=== PATIENT | male | born 1970 | race Caucasian/White ===

== ENCOUNTER 2024-07-20 05:55 | Day surgery (SDC) | payer BC, SELFPAY ==
[2024-07-19 11:16] VITALS: BMI 33.8
[2024-07-19 11:34] LABS: % Basophils 0.4 % (0-2); % Eosinophils 1.2 % (0-6); % Immature Granulocytes 0.7 % (0-0.5); % Lymphocytes 14.9 % (20.5-51.1); % Neutrophils 70.8 % (42.2-75.2); Absolute Eosinophils 0.1 10^3/uL (0-0.7); Absolute Immature Granulocytes 0.1 10^3/uL (0-0.05); Absolute Lymphocytes 1.2 10^3/uL (1.2-3.4); Absolute Neutrophils 5.8 10^3/uL (1.4-6.5); Hematocrit 42.2 % (39.0-52.0); Hemoglobin 14.3 g/dL (13.0-18.0); Mean Corp Hgb Conc. 33.9 g/dL (33.0-37.0); Mean Corpuscular Hgb 28.3 pg (27.0-31.0); Mean Corpuscular Volume 83.6 fL (80.0-94.0); Nucleated Red Blood Cells % 0 % (-); Platelet Count 180 10^3/uL (130-400); Red Blood Cell Count 5.05 10^6/uL (4.70-6.10); Red Cell Dist. Width 13.2 % (11.5-14.5); White Blood Cell Count 8.1 10^3/uL (4.8-10.8)
[2024-07-19 11:49] LABS: ALT (SGPT) 21 U/L (0-50); AST (SGOT) 21 U/L (17-59); Albumin 4.4 g/dl (3.5-5.0); Alkaline Phosphatase 89 U/L (38-126); Blood Urea Nitrogen 25 mg/dl (9-20); Calcium 9.4 mg/dl (8.4-10.2); Carbon Dioxide 27 mmol/L (22-30); Chloride 103 mmol/L (98-107); Estimated Creatinine Clearance 103 ml/min; Glucose 101 mg/dl (70-99); Magnesium 2.1 mg/dl (1.6-2.3); Potassium 4.4 mmol/L (3.5-5.1); Sodium 141 mmol/L (135-145); Total Bilirubin 0.5 mg/dl (0.2-1.3); Total Protein 7.2 g/dl (6.3-8.2); eGFR > 60.00
[2024-07-19 12:10] LABS: INR 1.07
--- NOTE | 2024-07-19 12:11 | HPS.HSE ---
Family Physician
-
Family Physician: NOT KNOW UNKNOWN - PT DOES
Chief Complaint
-
Paroxysmal AFib/flutter
History of Present Illness
54 year-old male with paroxysmal symptomatic atrial fibrillation who is undergone two prior cardioversion but has failed to maintain long-term sinus rhythm. His arrhythmia dates back to 2019 at which time he was experiencing palpitations,
intermittent shortness of breath, fatigue, and dizziness. He was placed on Sotalol but states he developed heart block and this was subsequently discontinued. He is presently maintained on Diltiazem and anticoagulated on Eliquis. When seen in follow
up, he was noted to be in atrial fibrillation/aflutter. Past medical le history also includes low-grade pancreatitis and obesity. Echocardiogram during last hospitalization February 2023 showed normal left ventricular size and systolic function with
LVEF 45 to 50% range. We will perform EP study with ablation to hopefully eradicate his arrhythmia.
Medical History
Past Medical History
Past Medical History: Reports Arrhythmia (AFib/flutter) and Other (pancreatitis, obesity BMI 33.8)
Past Surgical History: Reports Cardiac (CV x2 2019)
Social History
Tobacco: Non-smoker
Alcohol: Other (previously 1 drink/day, now none)
Family History
Family History: Not pertinent
Allergies / Home Medications
Allergy/Medication List:
Allergies:
NKDA
Home Medications:
Eliquis 5mh bid.
diltiazem 120mg hs.
Review of Systems
-
A 12 point ROS was completed and negative except as noted: Yes
Physical Exam
Physical Exam
General: Well Developed and Well Nourished
HEENT: NormoCephalic and Anicteric
Respiratory: Clear and Non Labored Respirations
Cardiac: Irregular Rhythm
GI: Soft and Non Tender
Musculoskeletal: No Edema
Neuro: AO x 3 and Cranial Nerves Intact
Laboratory Results
-
07/19/24 11:24
07/19/24 11:24
Laboratory Results
Total Bilirubin 0.5 mg/dl (0.2-1.3) 07/19/24 11:24
AST 21 U/L (17-59) 07/19/24 11:24
ALT 21 U/L (0-50) 07/19/24 11:24
Alkaline Phosphatase 89 U/L (38-126) 07/19/24 11:24
Impression/Plan
-
IMPRESSION/PLAN:
PAF/Flutter-EP study with ablation.
[2024-07-20] VITALS (20 sets, daily range): BP systolic 104–145; BP diastolic 74–97; BMI 33.7
[2024-07-20 08:58] LABS: ACT-LR - POC 335 Seconds (116-155)
[2024-07-20 09:18] LABS: ACT-LR - POC 308 Seconds (116-155)
[2024-07-20 09:39] LABS: ACT-LR - POC 322 Seconds (116-155)
--- NOTE | 2024-07-20 09:51 | ITS.CL.ABL ---
Informatics Educator - Ablation
Ablation
Procedure Report:
ELECTROPHYSIOLOGY ABLATION STUDY
�
DATE:: July 20, 2024�����������������������������REFERRING: Dr. Shun Harris
�
INDICATION: Persistent supraventricular tachycardia in the form of atrial fibrillation.� Depressed ejection fraction related to rapid atrial fibrillation rates
�
HISTORY: See H and P.��As above
�
ANTIARRHYTHMIC DRUG: Diltiazem
�
PRE-PROCEDURE CHIKI: No atrial thrombus on intracardiac ultrasound
�
PRESENTING RHYTHM: Atrial fibrillation
�
'TIME-OUT':��called and confirmed.
�
SEDATION/ANESTHESIA:��provided via the anesthesia department using general anesthesia (LMA).
�
INTRAVENOUS/ARTERIAL ACCESS:
Right femoral venous - 8Fr we upgraded to a 16 [place] short sheath to accommodate the steerable transseptal sheath
Left femoral venous - 8 Fr, 6 Fr
[id number] suture to bilateral groins
Ultrasound guidance for bilateral femoral vein access was utilized by me to obtain access with demonstration of normal anatomy
CHADS-VASC Score:
�
HAS-Bled Score
�
PROCEDURE:
1.��A decapolar CS catheter was placed within the CS for mapping and pacing.��This was also used as the reference catheter for the 3-D map.
�
2. The intracardiac ultrasound catheter was positioned in the RA to identify the FO for targeting of transseptal puncture, assist��in identification of the pulmonary vein ostia, monitoring pre and post ablation pulmonary vein flow velocities,
monitoring for 'bubble' formation during RF application as a sign of thermal injury,��and to monitor for pericardial effusion during mapping and ablation procedure.���Left atrial size, LV ejection fraction, and pulmonary vein flows were monitored
pre and post ablation procedure. The other valves were inspected and found to be free of significant regurgitation or stenosis.
�
3.��Half of the calculated heparin bolus was administered prior to the first transeptal puncture.��Transseptal puncture was performed to diagnose RA and LA pressure so that safetey of LA mapping and ablation could be further assessed, and to access
the left atrium and pulmonary veins for mapping and ablation.��This entailed advancing an 10 [place] steerable sheath with dilator into the superior vena cava and withdrawing both (monitoring intracardiac ultrasound, fluoroscopy and tip pressure)
with the tip oriented toward the atrial septum. We utilized a safe septal wire and over a ProTrac wire the 14 [place] Contour sheath was brought to the left atrium. �The fossa ovalis was engaged (indicated by sudden displacement of the sheath tip as
well as tenting of the fossa seen on intracardiac ultrasound).��Left atrial access required a pass with the Brockenbrough needle extended.��Left atrial catheter position was confirmed by pressure monitoring (RA mean pressure 8 mm Hg and LA mean
presure 12 mm Hg), LA saturation (99%),��as well as fluoroscopy.��The sheath was advanced over the dilator and positioned in the left atrium.��This procedure was repeated for the Agilis sheath.��The remainder of the calculated heparin bolus was
administered and heparin was
infused to maintain ACT at 300 -350 seconds throughout the case.
�
4.��RA pacing was performed via the proximal decapolar poles and LA pacing was performed via the distal decapolr poles.
�
5. A quadrapolar catheter was first positioned at the His position for His Bundle recording which was tagged via the 3-D Navex sytem, and then passed to the RVA for RV pacing and recording.
�
6. The multipolar catheter and the PFA catheter were placed in each of the LIPV, LSPV, RSPV and the RIPV.��
�
7.��Next, a 3-D map was created using Navex.���A 3-D reconstructed CT image was compared to the 3-D Navex map to assist in anatomic interpretation, mapping and ablation.��The CT image and the NavX image were fused.
�
8. A total of 102 lesions were given to the pulmonary veins and left atrial posterior wall. Electrical silence was established and left atrial posterior wall. In sinus rhythm the veins were remapped and the posterior wall was remapped. The right
pulmonary veins had entrance and exit block and left atrial posterior wall electrical silence. There was a small area of connection distally in the left inferior pulmonary vein on the ligament of Khoa as well as the left superior pulmonary vein
and the anterior olga. Additional lesions were given in both the left superior and left inferior pulmonary veins and these regions and entrance and exit block was confirmed in those pulmonary veins. No other nonpulmonary vein triggers for atrial
fibrillation were notable. Ejection fraction post cardioversion was approximately 40% and preablation in atrial fibrillation approximately 30%.
�
9. Normal sinus node and AV kellie function noted.
�
TOTAL FLOURO TIME: 20.7 minutes
�
TOTAL RF DURATION: 0 minutes
�
REVERSAL OF HEPARIN: 35 mg of protamine, slow IV administration
�
COMPLICATIONS:
None
Intracardiac US shows no pericardial effusion post ablation.
�
SUMMARY:��
Complex left atrial mapping and ablation.
Entrance and exit block in all 4 pulmonary veins and left atrial posterior wall.
�
RECOMMENDATIONS:
1. Out of bed 4 hours
2. Resume anticoagulation
3.��Switch diltiazem to Toprol XL 25 mg given the patient's mild nonischemic cardiomyopathy. Repeat echo in 3 months and consider afterload reduction which could be started as an outpatient
4.��Consider same-day discharge
�
Copy to: Dr. Shun Harris
�
[2024-07-20] MEDS: TOPROL XL 25 MG PO (10:19)
[2024-07-20] MEDS: ANESTHETIC LOZENGE 1 LOZENGE PO (11:59)
--- NOTE | 2024-07-20 13:32 | W.PN.UPDATE ---
Update Note
Progress Note Update
54 yo WM s/p PVI (same day). He denies cp, sob, sharita diet, voiding, b/l groins c/d/i no HT< soft, EKG SR. He will continue OAC Eliquis dose at home tonight. His EF was 40% by ICE intraprocedurally so we will stop Diltiazem and switch to toprol xl
25mg daily. He will need f/u Echo in [address] Harris to reassess EF after maintaining SR. Activity restrictions reviewed. He will f/u Dr. Harris in 3 mo. He is for d/c home after 230p if groins stable.
SUMMARY:��
Complex left atrial mapping and ablation.
Entrance and exit block in all 4 pulmonary veins and left atrial posterior wall.
== END 2024-07-20 14:30 | disposition home or self-care (01) ==
LOC: CATH 05:55
PROVIDERS: ATTENDING PHYSICIAN Internal Medicine Cardiovascular Disease; OTHER PHYSICIAN Internal Medicine Cardiovascular Disease
DX: I48.0 Paroxysmal atrial fibrillation (principal); I48.92 Unspecified atrial flutter; Z87.19 Personal history of other diseases of the digestive system; E66.9 Obesity, unspecified; Z68.33 Body mass index [BMI] 33.0-33.9, adult; Z79.01 Long term (current) use of anticoagulants
CPT/HCPCS: C1732; C1894; C1730; C1769; C1766; C1892; C1759; 36415; 75572; 80053; 83735; 85025; 85347; 85610; 86850; 86900; 86901; 93005; 93656; C1733; C1889; Q9967

== ENCOUNTER 2024-11-17 05:58 | Day surgery (SDC) | payer BC, SELFPAY ==
[2024-11-09 09:57] VITALS: BMI 34.2
[2024-11-09 10:33] LABS: % Basophils 0.4 % (0-2); % Eosinophils 1.2 % (0-6); % Immature Granulocytes 0.4 % (0-0.5); % Monocytes 10.5 % (1.7-9.3); % Neutrophils 77.5 % (42.2-75.2); Absolute Eosinophils 0.1 10^3/uL (0-0.7); Absolute Lymphocytes 0.9 10^3/uL (1.2-3.4); Absolute Monocytes 0.9 10^3/uL (0.1-0.6); Absolute Neutrophils 6.7 10^3/uL (1.4-6.5); Hematocrit 42.7 % (39.0-52.0); Hemoglobin 13.8 g/dL (13.0-18.0); Mean Corp Hgb Conc. 32.3 g/dL (33.0-37.0); Mean Corpuscular Hgb 28.5 pg (27.0-31.0); Mean Corpuscular Volume 88.2 fL (80.0-94.0); Mean Platelet Volume 12.3 fL (7.4-10.4); Nucleated Red Blood Cells % 0 % (-); Platelet Count 150 10^3/uL (130-400); Red Blood Cell Count 4.84 10^6/uL (4.70-6.10); Red Cell Dist. Width 15.4 % (11.5-14.5); White Blood Cell Count 8.6 10^3/uL (4.8-10.8)
[2024-11-09 10:46] LABS: PT 14.7 Sec (11.4-14.6)
[2024-11-09 11:02] LABS: ALT (SGPT) 34 U/L (0-50); AST (SGOT) 27 U/L (17-59); Albumin 4.5 g/dl (3.5-5.0); Alkaline Phosphatase 85 U/L (38-126); Blood Urea Nitrogen 24 mg/dl (9-20); Calcium 9.4 mg/dl (8.4-10.2); Carbon Dioxide 26 mmol/L (22-30); Chloride 102 mmol/L (98-107); Estimated Creatinine Clearance 103 ml/min; Glucose 106 mg/dl (70-99); Magnesium 2.1 mg/dl (1.6-2.3); Potassium 4.4 mmol/L (3.5-5.1); Sodium 138 mmol/L (135-145); Total Bilirubin 0.9 mg/dl (0.2-1.3); Total Protein 7.1 g/dl (6.3-8.2); eGFR > 60.00
[2024-11-17] VITALS (16 sets, daily range): BP systolic 92–145; BP diastolic 65–113
[2024-11-17 08:48] LABS: ACT-LR - POC 372 Seconds (116-155)
[2024-11-17 09:04] LABS: ACT-LR - POC 366 Seconds (116-155)
[2024-11-17 09:21] LABS: ACT-LR - POC 358 Seconds (116-155)
--- NOTE | 2024-11-17 09:46 | ITS.CL.ABL ---
Automobile Body Repair Chief - Ablation
Ablation
Procedure Report:
ELECTROPHYSIOLOGY ABLATION STUDY
DATE:: November 17, 2024�����������������������������REFERRING: Dr. Shun Harris
INDICATION: Persistent supraventricular tachyarrhythmia demonstrated to be atypical atrial flutter. Previous pulmonary vein isolation and left atrial posterior wall isolation with the pulselike catheter in 2023. Preprocedure he had only atrial
fibrillation. Post procedure he has had atypical atrial flutter only but with rapid rates and a tachycardia induced cardiomyopathy. Morphology suggests a left atrial process which is positive throughout the precordium and superiorly directed
potentially mitral or double loop reentry flutter.
HISTORY: See H and P.��As above
ANTIARRHYTHMIC DRUG: Amiodarone
PRE-PROCEDURE CHIKI: No intracardiac thrombus on intracardiac ultrasound
PRESENTING RHYTHM: Atrial flutter which was demonstrated to be clockwise mitral flutter cycle length 220 ms
'TIME-OUT':��called and confirmed.
SEDATION/ANESTHESIA:��provided via the anesthesia department using general anesthesia (LMA).
INTRAVENOUS/ARTERIAL ACCESS:
Right femoral venous - 8Fr
Left femoral venous - 8 Fr, 6 Fr
Ultrasound guidance for bilateral femoral vein access was utilized by me to obtain access with demonstration of normal anatomy
CHADS-VASC Score:
HAS-Bled Score
PROCEDURE:
1.��A decapolar CS catheter was placed within the CS for mapping and pacing.��This was also used as the reference catheter for the 3-D map. We performed entrainment from the right atrium with a decapolar catheter and the Lattice catheter
demonstrating PPI greater than tachycardia cycle length of greater than 100 ms from the lateral CTI, CTI and proximal coronary sinus was 30 ms PPI greater than tachycardia cycle length. We can only engage the proximal ostium with a coronary sinus
catheter. As such we proceeded to transseptal puncture as below and entrainment from the left atrium demonstrated the right and left veins to be out of the circuit with PPI greater than 100 ms greater than tachycardia cycle length and the roof of
the left atrium out of the circuit with a PPI 60 ms greater than tachycardia cycle length. At baseline the right superior pulmonary vein was connected at the olga, the right inferior pulmonary vein was connected at the olga, and the left
inferior pulmonary vein was connected at the anterior olga. The left atrial posterior wall proper was isolated at baseline. Interestingly inside the right supra pulmonary vein cycle length was approximately 150 ms suggesting potentially a
hierarchy of trigger for this atrial flutter.
2. The intracardiac ultrasound catheter was positioned in the RA to identify the FO for targeting of transseptal puncture, assist��in identification of the pulmonary vein ostia, monitoring pre and post ablation pulmonary vein flow velocities,
monitoring for 'bubble' formation during RF application as a sign of thermal injury,��and to monitor for pericardial effusion during mapping and ablation procedure.���Left atrial size, LV ejection fraction, and pulmonary vein flows were monitored
pre and post ablation procedure. The other valves were inspected and found to be free of significant regurgitation or stenosis. At baseline ejection fraction was 30 to 35%. Postconversion ejection fraction was approximately 40%.
3.��Half of the calculated heparin bolus was administered prior to the first transeptal puncture.��Transseptal puncture was performed to diagnose RA and LA pressure so that safety of LA mapping and ablation could be further assessed, and to access
the left atrium and pulmonary veins for mapping and ablation.��This entailed advancing an 10 [place] steerable sheath with dilator into the superior vena cava and withdrawing both (monitoring intracardiac ultrasound, fluoroscopy and tip pressure)
with the tip oriented toward the atrial septum.��The fossa ovalis was engaged (indicated by sudden displacement of the sheath tip as well as tenting of the fossa seen on intracardiac ultrasound).��Left atrial access required a pass with the
Brockenbrough needle extended.��Left atrial catheter position was confirmed by pressure monitoring (RA mean pressure 8 mm Hg and LA mean presure 14 mm Hg), LA saturation (99%),��as well as fluoroscopy.��The sheath was advanced over the dilator and
positioned in the left atrium.��This procedure was repeated for the Agilis sheath.��The remainder of the calculated heparin bolus was administered and heparin was
infused to maintain ACT at 300 -350 seconds throughout the case.
4.��RA pacing was performed via the proximal decapolar poles and LA pacing was performed via the distal decapolr poles.
5. A quadrapolar catheter was first positioned at the His position for His Bundle recording which was tagged via the 3-D Navex sytem, and then passed to the RVA for RV pacing and recording.
6. The ablation catheter was positioned through one of the transeptal seaths and a 20 pole ring mapping catheter was positioned through the second seath into the LA and then the ostia of the LIPV, LSPV, RSPV and the RIPV.��
7.��Next, a 3-D map was created using Navex.���A 3-D reconstructed CT image was compared to the 3-D Navex map to assist in anatomic interpretation, mapping and ablation.��The CT image and the NavX image were fused.
8. Ablation was performed around the right pulmonary veins in a circumferential fashion and around the left pulmonary veins in a circumferential fashion isolating each of the 4 pulmonary veins without change in the underlying cycle length of
tachycardia. Lesions at the roof and the floor of the left atrium were performed to buffet the prior left atrial posterior wall isolation with tachycardia remaining at 230 ms. As above entrainment demonstrated clockwise mitral flutter. We
initiated ablation with radiofrequency energy 400 W over 5 seconds using intracardiac ultrasound's guidance from the mitral annulus. Radiofrequency energy was delivered to the mid annulus with slowing of tachycardia to 250 ms. PFA was then
performed from mid mitral valve isthmus back to the left inferior pulmonary vein with termination of tachycardia and bidirectional block intra isthmus conduction time of 140 ms was noted. There is an absence of voltage along the entirety of the
mitral valve the left inferior pulmonary vein line. Additional lesions were also given along the ligament of Khoa across the left atrial appendage and the pulmonary vein side. There was healthy electroanatomic voltage in the left atrial
appendage post ablation. We then performed pacing demonstrating entrance and exit block across the posterior wall and the 4 pulmonary veins and bidirectional block across the mitral isthmus. We then performed EPS with stimulation without other
inducibility and at the end of the procedure perform CTI flutter ablation utilizing radiofrequency energy at the tricuspid annulus back to the middle of the line and then PFA towards the back of the line and up a prominent eustachian ridge bring
about bidirectional block at 130 ms bidirectionally with wide split doubles.
9. An RF line was also placed at the IVC-TVA isthmus to interupt the potential typical atrial flutter circuit.��At the end of RF at this site, pacing from the lateral side of the line and the medial side of the line was performed to evaluate for
bidirectional block intra isthmus conduction time of 130 ms bidirectionally.
TOTAL FLOURO TIME: 11.6 minutes 84 mGy
TOTAL RF DURATION: 1 minutes
REVERSAL OF HEPARIN: 40 mg of protamine, slow IV administration
COMPLICATIONS:
None
Intracardiac US shows no pericardial effusion post ablation.
SUMMARY:��
Complex left atrial mapping and ablation.
Reisolation of the right superior pulmonary vein, left inferior pulmonary vein, left atrial posterior wall, and CTI flutter ablation. The patient's clinical arrhythmia was clockwise mitral flutter which slowed and terminated with a combination of
radiofrequency energy and PFA from the mitral valve annulus to the lateral edge of the left inferior pulmonary vein.
RECOMMENDATIONS:
1. IV Lasix
2. Resume anticoagulation
3.��Continue LifeVest for 1 week then discontinue
4.� Discontinue amiodarone in 3 months
5. Outpatient follow-up with Dr. Harris
Copy to: Dr. Shun Harris
[2024-11-17] MEDS: LASIX 20 MG IV (10:23)
[2024-11-17] MEDS: ANESTHETIC LOZENGE 1 LOZENGE PO (10:45)
--- NOTE | 2024-11-17 14:42 | W.PN.UPDATE ---
Update Note
Progress Note Update
54 yo WM s/p PVI and Aflutter (same day). He denies cp, sob, sharita diet, voiding, b/l groins c/d/i no HT soft. He was diuresing well with lasix 20mg iv. He will continue amiodarone for 1 month then stop. He will resume Eliquis tonight and continue
metoprolol. Activity restrictions reviewed. He will wear life vest for 1 more week then d/c. He will f/u Dr. Harris in 3 mo. He is for d/c home after 3pm.
SUMMARY:��
Complex left atrial mapping and ablation.
Reisolation of the right superior pulmonary vein, left inferior pulmonary vein, left atrial posterior wall, and CTI flutter ablation. The patient's clinical arrhythmia was clockwise mitral flutter which slowed and terminated with a combination of
radiofrequency energy and PFA from the mitral valve annulus to the lateral edge of the left inferior pulmonary vein.
== END 2024-11-17 15:00 | disposition home or self-care (01) ==
LOC: CATH 05:58
PROVIDERS: ATTENDING PHYSICIAN Internal Medicine Cardiovascular Disease; OTHER PHYSICIAN Internal Medicine Cardiovascular Disease
DX: I48.0 Paroxysmal atrial fibrillation (principal); I48.4 Atypical atrial flutter; R06.02 Shortness of breath; R53.83 Other fatigue; R00.2 Palpitations; I45.9 Conduction disorder, unspecified; Z79.899 Other long term (current) drug therapy; E66.9 Obesity, unspecified; Z68.34 Body mass index [BMI] 34.0-34.9, adult; Z79.01 Long term (current) use of anticoagulants
CPT/HCPCS: C1894; C1730; C1766; C1892; C1759; C1733; 36415; 80053; 83735; 85025; 85347; 85610; 86850; 86900; 86901; 93005; 93655; 93656; 93657